=== PATIENT | male | born 1965 | race Two or more races ===

== ENCOUNTER 2023-11-25 17:06 | Emergency (ER) | payer OTHER ==
[~2023-11-25] VITALS: Ht 157.5 cm; Wt 77.6 kg
[2023-11-25 18:31] VITALS: BP 135/71; PULSE 71; RESP 16; TEMP 99.2; O2SAT 97
[2023-11-25] MEDS: KETOROLAC TROMETH 60MG/2ML VIAL IM ONE (19:07)
[2023-11-25] MEDS: HYDROcodone-ACET 5/325MG TAB PO ONE (19:07)
[2023-11-25] MEDS ORDERED: METH-1181 PO (19:35)
[2023-11-25] MEDS ORDERED: METH4PAK PO (19:35)
== END 2023-11-25 19:49 | disposition home or self-care (01) ==
LOC: EDBD 17:06 → ER 17:06
DX: S33.5XXA Sprain of ligaments of lumbar spine, initial encounter (principal); M54.59 Other low back pain; X50.0XXA Overexertion from strenuous movement or load, initial encounter; Y93.89 Activity, other specified; Y92.89 Other specified places as the place of occurrence of the external cause; Y99.8 Other external cause status
CPT/HCPCS: 72100; 96372; 99283; J1885